=== PATIENT | male | born 1980 ===

== ENCOUNTER 2020-12-03 07:04 | Outpatient (REF) | payer BC, SELFPAY | END 2020-12-03 07:05 | disposition home or self-care (01) | LOC: HO.WFDLDS 07:04 | PROVIDERS: PCP Pediatrics; Visit Provider Internal Medicine | DX: Z20.828 Contact with and (suspected) exposure to other viral communicable diseases (principal) | CPT/HCPCS: 36415; C9803; U0003 ==

== ENCOUNTER 2024-01-04 11:11 | Emergency (ER) | payer OTHER, BC, SELFPAY ==
--- NOTE | ~2024-01-04 | CT_ITS ---
EXAMINATION: CT HEAD WITHOUT CONTRAST CLINICAL INFORMATION: Headache. COMPARISON: No relevant prior imaging. TECHNIQUE: Contiguous axial imaging was performed from the skull base to vertex without intravenous administration of contrast. This CT examination was performed using dose optimization techniques as appropriate, variously including the following: *Automated exposure control *Adjustment of mA and/or kV according to patient size (this includes techniques or standardized protocols for targeted exams where dose is matched to indication/reason for exam; i.e. extremities or head) *Use of iterative reconstruction technique DLP: 702 mGy-cm FINDINGS: There is no acute intracranial hemorrhage or abnormal extra-axial collection. No intracranial mass effect or midline shift. Lateral and third ventricles are normal. No hydrocephalus. Brown-white matter differentiation is preserved and there is no evidence of acute territorial infarct. The calvarium and skull base are intact. Mastoid air cells and middle ear cavities are well aerated. There is a retention cyst within the alveolar recess of the right maxillary sinus. Otherwise no active paranasal sinus disease. CT/CT head/brain wo IV con IMPRESSION: Unremarkable CT scan of the head. No evidence of acute territorial infarct or hemorrhage.
[2024-01-04 11:20] VITALS: BP 151/96; PULSE 68; RESP 17; TEMP 36.5; O2SAT 100; BMI 29.8
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
== END 2024-01-04 13:55 | disposition home or self-care (01) ==
PROVIDERS: Emergency Provider Emergency Medicine
DX: S06.0X0A Concussion without loss of consciousness, initial encounter (principal); R51.9 Headache, unspecified; Y33.XXXA Other specified events, undetermined intent, initial encounter; Y93.9 Activity, unspecified; Y92.9 Unspecified place or not applicable; Y99.0 Civilian activity done for income or pay
CPT/HCPCS: 70450; 99282; 99284

== ENCOUNTER → 2024-01-05 08:50 | Outpatient (BNVA) | payer OTHER, SELFPAY | PROVIDERS: Visit Provider Physician Assistant | DX: Z09 Encounter for follow-up examination after completed treatment for conditions other than malignant neoplasm (principal); S06.0X0A Concussion without loss of consciousness, initial encounter; Y04.2XXA Assault by strike against or bumped into by another person, initial encounter | CPT/HCPCS: 99203 ==